=== PATIENT | female | born 1955 | race Caucasian/White ===

== ENCOUNTER → 2020-07-18 | Outpatient (CLI) | payer OTHER, MEDICARE | LOC: SJCVC 10:42 | PROVIDERS: ATTEND Internal Medicine Cardiovascular Disease | DX: R94.31 Abnormal electrocardiogram [ECG] [EKG] (principal); I48.91 Unspecified atrial fibrillation; E78.00 Pure hypercholesterolemia, unspecified; K21.9 Gastro-esophageal reflux disease without esophagitis; E03.9 Hypothyroidism, unspecified ==

== ENCOUNTER → 2020-07-20 | Outpatient (CLI) | payer OTHER, MEDICARE | LOC: SJCVCIMAG 11:01 | PROVIDERS: ATTEND Internal Medicine Cardiovascular Disease | DX: I08.1 Rheumatic disorders of both mitral and tricuspid valves (principal); I27.20 Pulmonary hypertension, unspecified; R94.31 Abnormal electrocardiogram [ECG] [EKG]; I48.91 Unspecified atrial fibrillation; E78.5 Hyperlipidemia, unspecified; D68.59 Other primary thrombophilia; Z79.899 Other long term (current) drug therapy ==

== ENCOUNTER → 2020-08-10 | Outpatient (CLI) | payer OTHER, MEDICARE | LOC: SJCVCIMAG 09:06 | PROVIDERS: ATTEND Internal Medicine Cardiovascular Disease | DX: I48.91 Unspecified atrial fibrillation (principal); I49.3 Ventricular premature depolarization; E78.00 Pure hypercholesterolemia, unspecified; E03.9 Hypothyroidism, unspecified; K21.9 Gastro-esophageal reflux disease without esophagitis; Z79.899 Other long term (current) drug therapy ==

== ENCOUNTER → 2020-08-14 | Outpatient (CLI) | payer OTHER, MEDICARE | LOC: LAB 12:01 | PROVIDERS: ATTEND Internal Medicine Cardiovascular Disease | DX: Z01.812 Encounter for preprocedural laboratory examination (principal); Z20.828 Contact with and (suspected) exposure to other viral communicable diseases ==

== ENCOUNTER → 2020-08-21 | Outpatient (CLI) | payer OTHER, MEDICARE | LOC: LAB 11:38 | PROVIDERS: ATTEND Internal Medicine Cardiovascular Disease | DX: Z01.812 Encounter for preprocedural laboratory examination (principal); Z20.828 Contact with and (suspected) exposure to other viral communicable diseases ==

== ENCOUNTER → 2020-08-23 | Outpatient (CLI) | payer OTHER, MEDICARE ==
--- NOTE | 2020-08-23 08:23 | NUR ---
LATE ENTRY: PT ARRIVES AT 0645 FOR DAVION/CARDIOVERSION. PT PLACED ON MONITOR AND NOTED TO BE IN SINUS RHYTHM. EKG DONE TO CONFIRM. DR LIVINGSTON NOTIFIED. PT SENT HOME AFTER DR LIVINGSTON SEES PT
--- NOTE | 2020-08-23 08:56 | EKG ---
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 : 1955 Requested By: Mahda Hess Order Number: [id number] MD: Wander Abraham Measurements Intervals Everetts Rate: 68 P: 72 NE: 192 QRS: 9 QRSD: 91 T: -23 QT: 422 QTc: 449 Interpretive Statements Sinus rhythm RSR' in V1 or V2, probably normal variant Nonspecific T abnormalities, anterior leads No previous ECG available for comparison Electronically Signed On 08-23-2020 8:56:18 CDT by Wander Abraham [email or web address] <ELECTRONICALLY SIGNED> By: Wander Abraham MD, [facility] 08/23/20 0856 5 5 Wander Abraham MD, [facility] /EPI
== END | disposition home or self-care (01) ==
LOC: CATH 06:33
PROVIDERS: ATTEND Internal Medicine
DX: I48.91 Unspecified atrial fibrillation (principal); Z53.8 Procedure and treatment not carried out for other reasons

== ENCOUNTER → 2020-09-15 | Outpatient (CLI) | payer OTHER, MEDICARE | LOC: SJCVC 09:30 | PROVIDERS: ATTEND Internal Medicine Cardiovascular Disease | DX: I48.91 Unspecified atrial fibrillation (principal); D68.59 Other primary thrombophilia; E78.00 Pure hypercholesterolemia, unspecified; K21.9 Gastro-esophageal reflux disease without esophagitis; Z79.899 Other long term (current) drug therapy ==

== ENCOUNTER → 2020-12-12 | Outpatient (CLI) | payer OTHER, MEDICARE | LOC: SJCVC 12:25 | PROVIDERS: ATTEND Internal Medicine Cardiovascular Disease | DX: I48.91 Unspecified atrial fibrillation (principal); D68.59 Other primary thrombophilia; E78.00 Pure hypercholesterolemia, unspecified; K21.9 Gastro-esophageal reflux disease without esophagitis; M81.0 Age-related osteoporosis without current pathological fracture; E03.9 Hypothyroidism, unspecified; E78.5 Hyperlipidemia, unspecified; Z79.899 Other long term (current) drug therapy; Z82.49 Family history of ischemic heart disease and other diseases of the circulatory system ==

== ENCOUNTER → 2021-06-20 | Outpatient (CLI) | payer OTHER, MEDICARE | LOC: SJCVC 14:51 | PROVIDERS: ATTEND Internal Medicine Cardiovascular Disease | DX: I48.0 Paroxysmal atrial fibrillation (principal); E78.00 Pure hypercholesterolemia, unspecified; K21.9 Gastro-esophageal reflux disease without esophagitis; F41.9 Anxiety disorder, unspecified; E03.9 Hypothyroidism, unspecified; E78.5 Hyperlipidemia, unspecified; Z79.899 Other long term (current) drug therapy; Z82.49 Family history of ischemic heart disease and other diseases of the circulatory system ==

== ENCOUNTER → 2021-10-24 | Outpatient (CLI) | payer OTHER, MEDICARE | LOC: SJCVCIMAG 08:57 | PROVIDERS: ATTEND Internal Medicine Cardiovascular Disease | DX: R07.9 Chest pain, unspecified (principal) ==